=== PATIENT | female | born 1995 | race Caucasian/White ===

== ENCOUNTER 2016-12-11 17:49 | Emergency (ER) | payer BC ==
--- NOTE | 2016-12-11 18:27 | ER Document Report ---
ED Medical Screen (RME) - General Chief Complaint: Vaginal Bleeding Stated Complaint: VAGINAL BLEEDING Time Seen by Provider: 12/11/16 18:24 Mode of Arrival: Ambulatory Information source: Patient Notes: This is a 21-year-old female with no prior medical problems who presents to the emergency room with lower pelvic cramping and some vaginal bleeding earlier in the day. The patient is 8 weeks . She is 0 para 0 and her last normal menstrual period is October 19. The patient was recently seen by her OB doctor and Kushal Arceo and the blood tests confirm the . She does not know what her blood type is. She denies any abdominal pain or abdominal cramping at this time. She describes vaginal bleeding is some dark blood on tissue when she went to the bathroom earlier this morning. She has not had any further bleeding. TRAVEL OUTSIDE OF THE [place] IN LAST 30 DAYS: No - HPI Onset: This morning Onset/Duration: Sudden Quality of pain: Cramping Severity: None Pain Level: Denies Associated Symptoms: None Exacerbated by: Denies Relieved by: Denies Similar symptoms previously: No Recently seen / treated by doctor: Yes - Related Data Smoking: Non-smoker Frequency of alcohol use: None Drug Abuse: None Allergies/Adverse Reactions: No Known Allergies Allergy (Verified 12/11/16 17:52) Past Medical History - General Information source: Patient Last Menstrual Period: 10/13/2016 - Social History Cigarette use (# per day): No Chew tobacco use (# tins/day): No Frequency of alcohol use: None Drug Abuse: None Lives with: Spouse/Significant other Family history: None - Medical History Medical History: Negative Renal/ Medical History: Denies: Hx Peritoneal Dialysis Surgical Hx: Negative Review of Systems - Review of Systems Constitutional: denies: Chills, Fever EENT: No symptoms reported Cardiovascular: No symptoms reported Respiratory: No symptoms reported Gastrointestinal: No symptoms reported Genitourinary: No symptoms reported Female Genitourinary: No symptoms reported Musculoskeletal: No symptoms reported Skin: No symptoms reported Hematologic/Lymphatic: No symptoms reported Neurological/Psychological: No symptoms reported Physical Exam - Vital signs Vitals: Temp Pulse Resp BP Pulse Ox 98.7 F 79 14 132/64 H 100 12/11/16 17:52 12/11/16 17:52 12/11/16 17:52 12/11/16 17:52 12/11/16 17:52 Notes: Physical exam: GENERAL: 21-year-old female, alert and oriented 3, no acute distress. HEAD: Atraumatic, normocephalic. EYES: Pupils equal round and reactive to light, extraocular movements intact, sclera anicteric, conjunctiva are normal. ENT: Moist mucous membranes. NECK: Normal range of motion, supple LUNGS: Breath sounds clear to auscultation bilaterally and equal. No wheezes rales or rhonchi. HEART: Regular rate and rhythm without murmurs, rubs or gallops. ABDOMEN: Soft, normoactive bowel sounds. No tenderness to palpation. No guarding, no rebound. No masses appreciated. Pelvic exam deferred. EXTREMITIES: Normal range of motion, no pitting or edema. No clubbing or cyanosis. NEUROLOGICAL: Cranial nerves II through XII grossly intact. Normal speech, normal gait. PSYCH: Normal mood, normal affect. SKIN: Warm, Dry, normal turgor, no rashes or lesions noted. Course - Re-evaluation Re-evalutation: 12/11/16 20:54 I discussed case with Dr. hernandez who is on-call for OB at [facility] and let him know the results of the ultrasound as well as labs. He will be on-call this weekend and will also get forward to the OB office (Susie Reyes). He is recommended that if the patient has any problems over the weekend, that she should go to [facility] because he is computer operations technician. He is also said that she can call if she has any questions. I have conveyed this to the patient and her . I will give him a copy of the ultrasound as well as the ultrasound report on the labs. Her blood type is O+. Her urine tests look good. Her vital signs are stable and she looks quite good. 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 There is no obvious pole or heartbeat at this time. Doctor's Discharge - Discharge Clinical Impression: Vaginal bleeding in early Condition: Stable Disposition: HOME, SELF-CARE Additional Instructions: As we discussed, the ultrasound does show evidence of an early intrauterine . We are not able to detect the heartbeat with a pole yet. This places the at approximately 5 weeks. The heartbeat is not normally arise until 6 weeks and a few days. At rest, drink plenty of fluids, avoid stress. If you develop any abdominal pain or worsening bleeding return to the ER. Dr. hernandez is at the Ob go to [facility] the [facility] at [facility] and recommended that you so that he can see you if you have any problems over the weekend. He will give forward to Dr. Jones about the lab tests today. Call the office on Tuesday to be seen. Tell them that the ER doctor at spoken to Dr. hernandez is computer operations technician over the weekend. Bring a copy of the ultrasound, ultrasound report and lab reports with you when you go for that appointment.
[2016-12-11 18:57] LABS: APPEARANCE,URINE CLEAR; BILIRUBIN,URINE NEGATIVE (NEGATIVE); GLUCOSE, URINE NEGATIVE (NEGATIVE); KETONES,URINE NEGATIVE (NEGATIVE); LEUKOCYTE ESTERASE,URINE NEGATIVE (NEGATIVE); NITRITE,URINE NEGATIVE (NEGATIVE); PROTEIN,URINE NEGATIVE (NEGATIVE); URINE SPECIFIC GRAVITY 1.025; UROBILINOGEN,URINE NEGATIVE mg/dL (<2.0)
--- NOTE | 2016-12-11 19:39 | RADIOLOGY REPORT (SQ) ---
EXAM DESCRIPTION: U/S OB TRANSVAG W/DOPPLER COMPLETED DATE/TIME: 12/11/2016 7:18 pm REASON FOR STUDY: 8 weeks, with bleeding COMPARISON: None. TECHNIQUE: Transvaginal static and realtime grayscale images acquired of the pelvis. Additional dafne cted spectral and color Doppler images recorded. All images stored on PACs. bHCG: Not available. LIMITATIONS: None. FINDINGS: UTERUS: No masses. Arcuate versus bicornuate morphology. GESTATIONAL SAC: A circumscribed fluid collection is present within the endometrial echo complex, pos sibly on the basis of a small gestational sac. YOLK SAC: A rounded focus within this collection may represent a yolk sac. POLE: No. RIGHT ADNEXA: Normal ovary with normal vascular flow. No adnexal free fluid. No adnexal masses. LEFT ADNEXA: Normal ovary with normal vascular flow. No adnexal free fluid. No adnexal masses. FREE FLUID: None. OTHER: No other significant finding. IMPRESSION: POSSIBLE EARLY INTRAUTERINE . 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 BHCG LEVEL NOT AVAILABLE FOR CORRELATION WITH US FINDINGS. CONSIDER F/U BHCG AND/OR ULTRASOUND FOR VERIFICATION AND TO EXCLUDE ECTOPIC . Trimester of : First - 0 to 13 weeks. TECHNICAL DOCUMENTATION: JOB ID: [id number]- All Rights Reserved
[2016-12-11 20:33] VITALS: BP 111/63
== END 2016-12-11 20:22 | disposition home or self-care (01) ==
LOC: ER 17:49
DX: O20.9 Hemorrhage in early pregnancy, unspecified (principal); O26.891 Other specified pregnancy related conditions, first trimester; R10.2 Pelvic and perineal pain; O34.01 Maternal care for unspecified congenital malformation of uterus, first trimester; Q51.3 Bicornate uterus; Z3A.08 8 weeks gestation of pregnancy
CPT/HCPCS: 36415; 76817; 81001; 84702; 86900; 86901; 93976; 99284

== ENCOUNTER 2017-06-30 20:28 | Emergency (ER) | payer BC, MEDICAID ==
[2017-06-30 22:18] LABS: A TYPE INFLUENZA AG NEGATIVE (NEGATIVE); B INFLUENZA AG NEGATIVE (NEGATIVE)
--- NOTE | 2017-06-30 22:18 | ER Document Report ---
HPI - HPI Patient complains to provider of: flu like symptoms Pain Level: 4 Context: Patient is a 21 year old female, at 33 weeks gestation, that comes to the ED for chief complaint of congestion, ear pain, body aches, and fever over the past 2-3 days. She denies abdominal pain, vomiting, vaginal bleeding, flank pain , shortness or breath, or any significant cough. No daily meds. Had the influenza vaccine, but states she just wants to be tested for the flu. Past Medical History - General Information source: Patient - Social History Smoking Status: Never Smoker Frequency of alcohol use: None Drug Abuse: None Lives with: Family Family History: Reviewed & Not Pertinent - Medical History Medical History: Negative Renal/ Medical History: Denies: Hx Peritoneal Dialysis Surgical Hx: Negative - Immunizations Immunizations up to date: Yes Hx Diphtheria, Pertussis, Tetanus Vaccination: Yes Vertical Provider Document - CONSTITUTIONAL General Appearance: WD/WN, No Apparent Distress - INFECTION CONTROL TRAVEL OUTSIDE OF THE [place] IN LAST 30 DAYS: No - HEENT HEENT: Atraumatic, Normocephalic. negative: Normal ENT Exam - Sinus congestion , swollen turbinates, left otitis media with loss of landmarks and notable erythema, minimal erythema of the posterior pharynx, clear airway, otherwise unremarkable ENT exam - NECK Neck: Normal Inspection - RESPIRATORY Respiratory: Breath Sounds Normal, No Respiratory Distress O2 Sat by Pulse Oximetry: 100 - CARDIOVASCULAR Cardiovascular: Regular Rate, Regular Rhythm - GI/ABDOMEN Gastrointestinal: Abdomen Soft, Abdomen Non-Tender - Nontender gravid abdomen - BACK Back: Normal Inspection - NEURO Level of Consciousness: Awake, Alert, Appropriate Motor/Sensory: No Motor Deficit, No Sensory Deficit - DERM Integumentary: Warm, Dry, No Rash Course - Re-evaluation Re-evalutation: Influenza is negative. Patient is very congested, has examination consistent with developing left-sided otitis media, otherwise she is well-appearing with clear lungs, no hypoxia, she is alert, soft abdomen. Patient will be treated for congestion, otitis media, discussed follow-up, discussed return precautions in detail with patient and including any difficulty breathing or signs of respiratory distress. They state understanding and agreement. - Vital Signs Vital signs: Temp Pulse Resp BP Pulse Ox 98.3 F 96 14 115/68 100 06/30/17 20:58 06/30/17 20:58 06/30/17 20:58 06/30/17 20:58 06/30/17 20:58 Discharge - Discharge Clinical Impression: Sinus pressure, Cough Fever Qualifiers: Fever type: unspecified Qualified Code(s): R50.9 - Fever, unspecified Otitis media Qualifiers: Otitis media type: suppurative Chronicity: acute Laterality: left Recurrence: not specified as recurrent Spontaneous tympanic membrane rupture: without spontaneous rupture Qualified Code(s): H66.002 - Acute suppurative otitis media without spontaneous rupture of ear drum, left ear Condition: Stable Disposition: HOME, SELF-CARE Additional Instructions: Influenza is negative. Exam is consistent with likely viral infection with developing ear infection. Use nasal spray, antibiotic, take Tylenol for fever/pain. Hydrate and rest. Follow up with primary care closely. Return if you worsen including any shortness of breath. Prescriptions: Amoxicillin Trihydrate [Amoxil 500 mg Capsule] 500 mg PO TID #30 cap Fluticasone Propionate [Flonase Nasal [place] 50 Mcg/[place] 16 gm] 1 spray NASL Q12 #1 inhaler
[2017-06-30 23:29] VITALS: BP 117/65
== END 2017-06-30 23:45 | disposition home or self-care (01) ==
LOC: ER 20:28
DX: O26.93 Pregnancy related conditions, unspecified, third trimester (principal); H66.002 Acute suppurative otitis media without spontaneous rupture of ear drum, left ear; R68.89 Other general symptoms and signs; R05 Cough; R50.9 Fever, unspecified; Z3A.33 33 weeks gestation of pregnancy
CPT/HCPCS: 87804; 99283

== ENCOUNTER 2017-08-04 03:52 | Inpatient (IN) | payer MEDICAID ==
[2017-08-04 04:27] LABS: APPEARANCE,URINE TURBID; BILIRUBIN,URINE NEGATIVE (NEGATIVE); COLOR,URINE YELLOW; GLUCOSE, URINE NEGATIVE (NEGATIVE); KETONES,URINE NEGATIVE (NEGATIVE); LEUKOCYTE ESTERASE,URINE TRACE (NEGATIVE); NITRITE,URINE NEGATIVE (NEGATIVE); PROTEIN,URINE 100 mg/dL (NEGATIVE); URINE SPECIFIC GRAVITY 1.004; UROBILINOGEN,URINE NEGATIVE mg/dL (<2.0)
[2017-08-04 04:39] LABS: AMNISURE (ROM) POSITIVE (NEGATIVE)
[2017-08-04] MEDS ORDERED: RINGERS SOLUTION,LACTATED 1,000 ML IV ONE (04:43)
[2017-08-04 04:47] LABS: URINE AMPHETAMINES SCREEN NEGATIVE; URINE BARBITURATES SCREEN NEGATIVE; URINE BENZODIAZEPINES SCREEN NEGATIVE; URINE COCAINE SCREEN NEGATIVE; URINE MARIJUANA (THC) SCREEN NEGATIVE; URINE METHADONE SCREEN NEGATIVE; URINE PHENCYCLIDINE SCREEN NEGATIVE
[2017-08-04 05:23] LABS: ABSOLUTE EOSINOPHILS # (AUTO) 0.1 10^3/uL (0.0-0.6); ABSOLUTE MONOCYTES (AUTO) 0.8 10^3/uL (0.1-1.4); ABSOLUTE NEUT (AUTO) 9.3 10^3/uL (1.7-8.2); BASOPHILS % (AUTO) 0.3 % (0-2); EOSINOPHILS % (AUTO) 1.1 % (0-6); HEMATOCRIT 39.3 % (36.0-47.0); HEMOGLOBIN 13.6 g/dL (12.0-15.5); LYMPHOCYTES % (AUTO) 16.2 % (13-45); MEAN CORPUSCULAR HEMOGLOBIN 30.4 pg (27.0-33.4); MEAN CORPUSCULAR HGB CONC 34.5 g/dL (32.0-36.0); MEAN CORPUSCULAR VOLUME 88 fl (80-97); MONOCYTES % (AUTO) 6.6 % (3-13); PLATELET COUNT 128 10^3/uL (150-450); RED BLOOD COUNT 4.46 10^6/uL (3.72-5.28); RED CELL DISTRIBUTION WIDTH 13.1 % (11.5-14.0); SEGMENTED NEUTROPHILS % (AUTO) 75.8 % (42-78); TOTAL CELLS COUNTED % (AUTO) 100 %; WHITE BLOOD COUNT 12.2 10^3/uL (4.0-10.5)
--- NOTE | 2017-08-04 05:32 | Non Stress Test Report ---
Non Stress Test Datetime Report Generated by CPN: 08/04/2017 05:32 DEMOGRAPHIC EGA NST: 38.4 INDICATION Indication for Study: Ordered by Provider MONITORING Monitor Explained: Monitor Explained; Test Explained; Patient Verbalized Understanding Time on Monitor: 08/04/2017 04:19 Time off Monitor: 08/04/2017 04:48 NST Duration: 29 NST INTERVENTIONS NST Interventions: PO Hydration Physician Notified NST: Dr. Rivas BABY A: [id number] BABY A Movement : Present Contraction Frequency : x1 FHR Baseline : 125 Accelerations : 15X15 Decelerations : None Variability : Moderate 6-25bpm NST Review: Meets Criteria for Reactive NST NST Review and Verified By : GIFTY Harper NSJanell Results: Reactive NST REPORT Report Trigger: Send Report
[2017-08-04] MEDS ORDERED: OXYTOCIN/NORMAL SALINE 20 UNIT/1,000 ML RTUINJ ONE ×2 (07:41→15:58)
[2017-08-04] MEDS ORDERED: LIDOCAINE 1% INJ-PF (10 MG/ML) 30 ML SDV ONE (07:41)
[2017-08-04] MEDS ORDERED: MISOPROSTOL 0.2 MG TABLET ONE (07:41)
--- NOTE | 2017-08-04 09:19 | L&D Progress Notes ---
PROGRESS NOTES Datetime Report Generated by CPN: 08/04/2017 09:19 PROGRESS NOTE Comment: Cat 1 strip, irreg uc's, on Pitocin VAGINAL EXAM Dilatation: 2 MEMBRANES Membranes: Ruptured SIGNATURE SIGNATURE: [id number] Assignment: Eugenio Cha MD Signature: with User ID: Olivia : with User ID: Olivia
[2017-08-04] MEDS ORDERED: OXYTOCIN/NORMAL SALINE 20 UNIT/1,000 ML RTUINJ IV PRN ×2 (09:35→15:46)
--- NOTE | 2017-08-04 12:58 | L&D Progress Notes ---
PROGRESS NOTES Datetime Report Generated by CPN: 08/04/2017 12:58 PROGRESS NOTE Impression: Reassuring Heart Rate Plan: Continue Present Management; Induction Comment: sitting on ball, uc's stronger, requesting epidural, uc's q q 2-3 min, cat 1 strip FETUS C SIGNATURE: [id number];[id number] SIGNATURE: [id number];[id number] Assignment: Eugenio Cha MD Signature: with User ID: [email or web address] : with User ID: [email or web address]
[2017-08-04] MEDS ORDERED: EPHEDRINE SULFATE INJ 50 MG/1 ML AMPULE ONE ×2 (13:04→15:59)
[2017-08-04] MEDS ORDERED: FENTANYL/BUPIVACAINE/NS/PF 200 MCG/100 ML RTUINJ EPI ONE (13:04)
[2017-08-04] MEDS ORDERED: BUPIVACAINE HCL 0.25 % INJ/PF (2.5 MG/1 ML) 30 ML VIAL ONE (13:04)
[2017-08-04] MEDS: RINGERS SOLUTION,LACTATED 1,000 ML IV PRN ×2 (14:30→18:49)
[2017-08-04] MEDS ORDERED: CITRIC ACID/SODIUM CITRATE ORAL SOLN 15 ML UDCUP ONE (15:37)
[2017-08-04] MEDS ORDERED: CEFAZOLIN 1 GM/D5W RTU 1 GM/50 ML RTUPB IV ONE (15:38)
[2017-08-04] MEDS ORDERED: LIDOCAINE 2% INJ-PF (20 MG/ML) 10 ML AMPUL ONE (15:38)
[2017-08-04] MEDS ORDERED: RINGERS SOLUTION,LACTATED 1,000 ML IV PRN (15:46)
[2017-08-04] MEDS ORDERED: HYDROMORPHONE HCL INJ/PF 2 MG/ML AMPULE IV PRN (15:46)
[2017-08-04] MEDS ORDERED: SIMETHICONE 80 MG TAB.CHEW PO PRN (15:46)
[2017-08-04] MEDS ORDERED: ACETAMINOPHEN 100 ML IV PRN (15:46)
[2017-08-04] MEDS ORDERED: PROMETHAZINE HCL INJ 25 MG/1 ML VIAL IV PRN ×3 (15:46→16:20)
[2017-08-04] MEDS ORDERED: DIPH/PERTUSS(ACELL)/TETANUS VAC/PF 0.5 ML SYR (>=10YO) IM PRN (15:46)
[2017-08-04] MEDS ORDERED: ACETAMINOPHEN 325 MG TABLET PO PRN (15:46)
[2017-08-04] MEDS ORDERED: OXYCODONE-ACETAMINOPHEN 5-325 MG TABLET PO PRN (15:46)
[2017-08-04] MEDS ORDERED: MEASLES,MUMPS&RUBELLA VACC/PF 0.5 ML VIAL SUBCUT PRN (15:46)
--- NOTE | 2017-08-04 15:54 | L&D Progress Notes ---
PROGRESS NOTES Datetime Report Generated by CPN: 08/04/2017 15:54 PROGRESS NOTE Impression: Non-reassuring Heart Rate Procedures: Sterile Vag Exam Informed Consent Obtained: Section Delivery Comment: repetitive decelerations with each uc, mod variability, VE /vtx/-2, no descent with UC's, Pitocin off, Dr. Cha notified, POC discussed with pt, hsb and family, it was decided to proceed with C/S, failure to descend and non reasuring strips FETUS C SIGNATURE: [id number];[id number] Assignment: Eugenio Cha MD Signature: with User ID: [email or web address] : with User ID: [email or web address]
[2017-08-04] MEDS ORDERED: KETAMINE HCL INJ 500 MG/10 ML VIAL ONE (15:59)
[2017-08-04] MEDS ORDERED: OXYTOCIN 10 UNIT/ML VIAL ONE (15:59)
[2017-08-04] MEDS ORDERED: FENTANYL CITRATE INJ/PF 100 MCG/2 ML AMPUL ONE (15:59)
[2017-08-04] MEDS ORDERED: MIDAZOLAM 2 MG/2 ML INJ ONE (16:00)
[2017-08-04] MEDS ORDERED: METOCLOPRAMIDE HCL INJ/PF 10 MG/2 ML SDV ONE (16:17)
[2017-08-04] MEDS ORDERED: ONDANSETRON HCL INJ/PF 4 MG/2 ML SDV ONE (16:17)
[2017-08-04] MEDS ORDERED: DEXAMETHASONE SOD PHOSPHATE INJ 4 MG/1 ML VIAL ONE (16:17)
[2017-08-04] MEDS ORDERED: LIDOCAINE 2% INJ-PF (20 MG/ML) 2 ML AMPUL ONE (16:17)
[2017-08-04] MEDS ORDERED: KETOROLAC TROMETHAMINE 60 MG/2 ML SDV ONE (16:17)
[2017-08-04] MEDS ORDERED: FENTANYL CITRATE INJ/PF 100 MCG/2 ML AMPUL IV PRN ×3 (16:20)
[2017-08-04] MEDS ORDERED: ONDANSETRON HCL INJ/PF 4 MG/2 ML SDV IV PRN (16:20)
[2017-08-04] MEDS ORDERED: MORPHINE SULFATE 10 MG/ML INJ IV PRN (16:20)
[2017-08-04] MEDS ORDERED: DIPHENHYDRAMINE HCL 50 MG/ML VIAL IV PRN (16:20)
[2017-08-04] MEDS ORDERED: MEPERIDINE HCL/PF INJ 25 MG/1 ML DISP.SYRIN IV PRN (16:20)
--- NOTE | 2017-08-04 16:58 | Operative Report ---
Operative Report DATE OF SURGERY: 08/04/17 PREOPERATIVE DIAGNOSIS: Repetitive variable decelerations POSTOPERATIVE DIAGNOSIS: Same in addition to umbilical cord presenting in front of the head between the head and the cervix OPERATION: Primary via low transverse uterine incision SURGEON: KADIE CORMIER ANESTHESIA: Epidural TISSUE REMOVED OR ALTERED: Placenta COMPLICATIONS: None ESTIMATED BLOOD LOSS: 250 cc INTRAOPERATIVE FINDINGS: Viable male Apgars 8 and 9 weight 6 lbs. 2 oz. also she has a heart shaped uterus with a septum PROCEDURE: Patient was taken to the OR and placed in supine position after her spinal anesthesia. She is prepared and draped in sterile fashion. Winston was placed for drainage of the bladder. Low transverse incision was made and carried down the level of the fascia. The fascial incision was made with knife and extended bilaterally with curved Redd scissors. The fascia was off the rectus muscles using sharp and blunt dissection. The rectus muscles are in the midline. The peritoneum was entered without incident. Bladder blade was placed and uterine segment was identified. A low transverse incision was made creating a bladder flap. Bladder blade was placed low transverse uterine incision was made with the c safe knife and extended with fingertips. The baby was delivered with some fundal pressure. Mouth and nose were suctioned free. The cord is doubly clamped and cut. Baby is passed off to the art tracer in attendance. The placenta was manually extracted with trailing membranes. The uterus was externalized wrapped in a moist lap sponge. Uterine contents wiped free. Uterus was closed with a running locking layer of 0 chromic suture using the second layer to imbricate the first completing a double layer closure of the uterus. The serosa was closed with a running 2-0 chromic stitch. The pelvis was irrigated and suctioned free of fluid the uterus was replaced in the abdomen. The abdominal wall peritoneum was closed with running 2-0 chromic stitch. Fascia was closed with a running 0 Vicryl in 2 segments. Edy's layer was brought together with 0 plain gut stitch and the skin was closed with running subcuticular 4-0 undyed Vicryl stitch. The wound was dressed mother and baby did well.
[2017-08-04] MEDS ORDERED: ACETAMINOPHEN 100 ML IV ONE (17:04)
--- NOTE | 2017-08-04 19:05 | Admission Physical ---
Datetime Report Generated by CPN: 08/04/2017 19:04 CURRENT ADMISSION Chief Complaint: Suspected Ruptured Membranes Indication for Induction: Not Applicable Admit Plan: Initiate Labor Protocol ALLERGIES Medication Allergies: No Medication Allergies: No Known Allergies (08/04/2017) Medication Allergies: No Known Allergies (06/30/2017) Latex: No Latex Allergies OBSTETRICAL HISTORY EDC: 08/14/2017 00:00 : 1 Para: 0 Term: 0 : 0 SAB: 0 IAB: 0 Ectopic: 0 Livin Cesareans: 0 VBACs: 0 Multiple Births: 0 Gestational Diabetes: No Rh Sensitization: No Incompetent Cervix: No YAMIL: No Infertility: No ART Treatment: No Uterine Anomaly: No IUGR: No Hx Previous C/S: No Macrosomia: No Hx Loss/Stillborn: No PIH: No Hx : No Placenta Previa/Abruption: No Depression/PP Depression: No PTL/PROM: No Post Hemorrhage: No Current Procedures: Ultrasound Obstetrical History Comments: G1 - current SEE RECORDS Alcohol: No Marijuana : No Cocaine: No Other Illicit Drugs: No Cigarettes: Never Smoker. [id number] MEDICAL HISTORY Diabetes: No Blood Transfusion: No Pulmonary Disease (Asthma, TB): No Breast Disease: No Hypertension: No Card Placer Surgery: No Heart Disease: No Hosp/Surgery: No Autoimmune Disorder: No Anesthetic Complications: No Kidney Disease: No Abnormal Pap Smear: No Neuro/Epilepsy: No Psychiatric Disorders: No Other Medical Diseases: No Hepatitis/Liver Disease: No Significant Family History: No Varicosities/Phlebitis: No Trauma/Violence : No Thyroid Dysfunction: No INFECTIOUS HISTORY Gonorrhea: No Genital Herpes: No Chlamydia: No Tuberculosis: No Syphilis: No Hepatitis: No HIV/AIDS Exposure: No Rash or Viral Illness: No HPV: No PHYSICAL EXAM General: Normal HEENT: Normal Neurologic: Normal Thyroid: Normal Heart: Normal Lungs: Normal Breast: Deferred Back: Normal Abdomen: Normal Genitourinary Exam: Normal Extremities: Normal DTRs: Normal Pelvic Type: Adequate VAGINAL EXAM Dilatation: 2 MEMBRANES Membranes: Ruptured FETUS A EGA: 38.4 Monitoring: External US Decelerations: None PLANS FOR LABOR AND DELIVERY Labor and Delivery: None Pain Management: Epidural Feeding Preference: Both Benefit of Breast Feed Discussed: Yes Circumcision: Yes INFORMED CONSENT Informed Consent Obtained: Section Delivery Signature: with User ID: [email or web address]
[2017-08-04] MEDS: KETOROLAC TROMETHAMINE INJ/PF 30 MG/1 ML SDV IV SCH (20:10)
[2017-08-04] MEDS: DOCUSATE SODIUM 100 MG CAPSULE PO SCH (21:43)
[2017-08-05] MEDS: KETOROLAC TROMETHAMINE INJ/PF 30 MG/1 ML SDV IV SCH ×2 (02:54→09:20)
[2017-08-05 07:39] LABS: HEMATOCRIT 33.2 % (36.0-47.0); MEAN CORPUSCULAR HEMOGLOBIN 30.6 pg (27.0-33.4); MEAN CORPUSCULAR HGB CONC 34.3 g/dL (32.0-36.0); MEAN CORPUSCULAR VOLUME 90 fl (80-97); PLATELET COUNT 132 10^3/uL (150-450); RED BLOOD COUNT 3.71 10^6/uL (3.72-5.28); RED CELL DISTRIBUTION WIDTH 13.5 % (11.5-14.0); WHITE BLOOD COUNT 19.1 10^3/uL (4.0-10.5)
[2017-08-05 07:44] LABS: HEMOGLOBIN 11.4 g/dL (12.0-15.5)
--- NOTE | 2017-08-05 08:55 | PDOC PROGRESS REPORT ---
Subjective-OB Progress Note for:: 08/05/17 Physical Exam (OB) Vital Signs: Temp Pulse Resp BP Pulse Ox 98.8 F 76 20 117/68 99 08/05/17 04:06 08/05/17 04:06 08/05/17 04:06 08/05/17 04:06 08/05/17 04:06 Intake & Output 08/04/17 08/05/17 08/06/17 06:59 06:59 06:59 Intake Total 1250 Output Total 1300 Balance -50 Weight 74.797 kg - Dressing Removed: No Incision: Well Approximated Closure Type: opsite - Lochia Lochia Amount: Scant < 10 ml Lochia Color: Rubra/Red - Abdomen Description: Tender, Soft, Round Hernia Present: No Bowel Sounds: Normoactive Flatus Presence: Present Stool: No Fundal Description: Firm, Midline Fundal Height: u/u - u/2 Objective-Diagnostic Laboratory: 08/05/17 06:41 08/05/17 06:41 WBC 19.1 H RBC 3.71 L Hgb 11.4 L D Hct 33.2 L MCV 90 MCH 30.6 MCHC 34.3 RDW 13.5 Plt Count 132 L
[2017-08-05] MEDS: PRENATAL VITAMIN W DHA CAPSULE PO SCH (09:20)
[2017-08-05] MEDS: DOCUSATE SODIUM 100 MG CAPSULE PO SCH ×2 (09:21→18:02)
[2017-08-05] MEDS: OXYCODONE-ACETAMINOPHEN 5-325 MG TABLET PO PRN ×2 (11:15→22:33)
[2017-08-05] MEDS: IBUPROFEN 800 MG TABLET PO SCH ×2 (11:22→18:07)
[2017-08-06 05:26] VITALS: BP 113/58
[2017-08-06] MEDS: IBUPROFEN 800 MG TABLET PO SCH ×3 (05:58→12:18)
[2017-08-06 06:59] LABS: ABSOLUTE BASOPHILS # (AUTO) 0.1 10^3/uL (0.0-0.2); ABSOLUTE EOSINOPHILS # (AUTO) 0.2 10^3/uL (0.0-0.6); ABSOLUTE LYMPHOCYTES (AUTO) 2.3 10^3/uL (0.5-4.7); ABSOLUTE MONOCYTES (AUTO) 0.8 10^3/uL (0.1-1.4); ABSOLUTE NEUT (AUTO) 12.1 10^3/uL (1.7-8.2); BASOPHILS % (AUTO) 0.3 % (0-2); EOSINOPHILS % (AUTO) 1.1 % (0-6); HEMATOCRIT 35.7 % (36.0-47.0); LYMPHOCYTES % (AUTO) 15.1 % (13-45); MEAN CORPUSCULAR HEMOGLOBIN 30.4 pg (27.0-33.4); MEAN CORPUSCULAR HGB CONC 33.6 g/dL (32.0-36.0); MEAN CORPUSCULAR VOLUME 90 fl (80-97); MONOCYTES % (AUTO) 5.4 % (3-13); PLATELET COUNT 142 10^3/uL (150-450); RED BLOOD COUNT 3.95 10^6/uL (3.72-5.28); RED CELL DISTRIBUTION WIDTH 13.8 % (11.5-14.0); SEGMENTED NEUTROPHILS % (AUTO) 78.1 % (42-78); TOTAL CELLS COUNTED % (AUTO) 100 %; WHITE BLOOD COUNT 15.5 10^3/uL (4.0-10.5)
--- NOTE | 2017-08-06 09:23 | PDOC PROGRESS REPORT ---
Subjective-OB Progress Note for:: 08/06/17 Subjective: Ready for discharge. Physical Exam (OB) Vital Signs: Temp Pulse Resp BP Pulse Ox 98.2 F 84 18 113/58 L 99 08/06/17 04:32 08/06/17 04:32 08/06/17 04:32 08/06/17 04:32 08/06/17 04:32 Intake & Output 08/05/17 08/06/17 08/07/17 06:59 06:59 06:59 Intake Total 1250 240 Output Total 1300 600 Balance -50 -360 - PIH/Pre-Eclampsia DTR's: 1 + Clonus: Negative Headache: Absent Epigastric Pain: No Visual Changes: No - Dressing Removed: No Incision: Dressing Closure Type: Op Site - Lochia Lochia Amount: Small 10-25 ml Lochia Color: Rubra/Red - Abdomen Description: Soft, Round Hernia Present: No Bowel Sounds: Normoactive Flatus Presence: Present Stool: No Fundal Description: Firm, Midline Fundal Height: u/u - u/2 Objective-Diagnostic Laboratory: 08/06/17 06:06 08/06/17 06:06 WBC 15.5 H RBC 3.95 Hgb 12.0 Hct 35.7 L MCV 90 MCH 30.4 MCHC 33.6 RDW 13.8 Plt Count 142 L Seg Neutrophils % 78.1 H Lymphocytes % 15.1 Monocytes % 5.4 Eosinophils % 1.1 Basophils % 0.3 Absolute Neutrophils 12.1 H Absolute Lymphocytes 2.3 Absolute Monocytes 0.8 Absolute Eosinophils 0.2 Absolute Basophils 0.1
--- NOTE | 2017-08-06 09:30 | PDOC DISCHARGE SUMMARY ---
Final Diagnosis Discharge Date: 08/06/17 - Final Diagnosis (1) Bicornuate uterus in , delivered, current hospitalization Is this a current diagnosis for this admission?: Yes (2) Delivery by emergency caesarean section Is this a current diagnosis for this admission?: Yes (3) Is this a current diagnosis for this admission?: Yes (4) Variable heart rate decelerations, delivered Is this a current diagnosis for this admission?: Yes Discharge Data - Discharge Medication Prescriptions: Oxycodone HCl/Acetaminophen [Percocet 5-325 mg Tablet] 1 tab PO Q4HP PRN #20 tablet PRN Reason: Docusate Sodium [Colace 100 mg Capsule] 100 mg PO BID #30 capsule Ibuprofen [Motrin 800 mg Tablet] 800 mg PO Q6 #30 tablet Home Medications: Vit/Iron Fum/Folic AC [ Tablet] 1 each PO DAILY 08/04/17 Docusate Sodium [Colace 100 mg Capsule] 100 mg PO BID #30 capsule 08/06/17 Ibuprofen [Motrin 800 mg Tablet] 800 mg PO Q6 #30 tablet 08/06/17 Oxycodone HCl/Acetaminophen [Percocet 5-325 mg Tablet] 1 tab PO Q4HP PRN #20 tablet 08/06/17 Gestational Age: 38+ wks Reason(s) for Admission: Onset of Labor, PROM Procedures: Ultrasound Intrapartum Procedure(s): : Low Cervical, Transverse - [place] Data Baby 1 Male at 1 minute: 8 at 5 minutes: 9 Weight: 2.778 kg Home with Mother: Yes Complications: No - Diagnosis Test Laboratory: Temp Pulse Resp BP Pulse Ox 98.2 F 84 18 113/58 L 99 08/06/17 04:32 08/06/17 04:32 08/06/17 04:32 08/06/17 04:32 08/06/17 04:32 08/04/17 08/04/17 08/05/17 04:06 05:05 06:41 RBC 4.46 3.71 L Hgb 13.6 11.4 L D Hct 39.3 33.2 L Urine Opiates Screen NEGATIVE 08/06/17 06:06 RBC 3.95 Hgb 12.0 Hct 35.7 L Urine Opiates Screen - Discharge information/Instructions Discharge Activity: Activity As Tolerated, Balance Activity w/Rest, No Lifting Over 10 Pounds, No Lifting/Push/Pulling, Pelvic Rest, Slowly Increase Activity, No tub bath Discharge Diet: Regular Disposition: HOME, SELF-CARE Follow up with: [facility] in: 1, Weeks
[2017-08-06] MEDS: DOCUSATE SODIUM 100 MG CAPSULE PO SCH (09:51)
[2017-08-06] MEDS: PRENATAL VITAMIN W DHA CAPSULE PO SCH (09:54)
== END 2017-08-06 17:56 | disposition home or self-care (01) | DRG 766 ==
LOC: LC 03:52 → LR 04:43 → 2N 19:03
PROVIDERS: ADMIT Obstetrics & Gynecology Gynecology; ATTEND Obstetrics & Gynecology Gynecology
PROC: 10D00Z1 Extraction of Products of Conception, Low, Open Approach (ICD-10-PCS; principal; 2017-08-04)
PROC: 4A1HXCZ Monitoring of Products of Conception, Cardiac Rate, External Approach (ICD-10-PCS; 2017-08-04)
DX: O76 Abnormality in fetal heart rate and rhythm complicating labor and delivery (principal); O65.5 Obstructed labor due to abnormality of maternal pelvic organs; O34.03 Maternal care for unspecified congenital malformation of uterus, third trimester; Q51.3 Bicornate uterus; Z3A.38 38 weeks gestation of pregnancy; Z37.0 Single live birth
CPT/HCPCS: 1961; 36415; 59025; 80307; 81005; 84112; 85025; 85027; 86592; 86850; 86900; 86901; 94799; J0131; J0690; J1100; J1885; J2250; J2405; J2590; J2765; J3010; J3490

== ENCOUNTER 2019-02-08 13:14 | Emergency (ER) | payer MEDICAID ==
--- NOTE | 2019-02-08 13:50 | ER Document Report ---
ED Medical Screen (RME) - General Chief Complaint: Vaginal Bleeding Stated Complaint: POSSIBLE MISCARRIAGE Time Seen by Provider: 02/08/19 13:45 Primary Care Provider: ADARSH MAURICE MD [Primary Care Provider] - Follow up as needed Mode of Arrival: Ambulatory Information source: Patient Notes: 23-year-old female presented to ED for complaint of vaginal bleeding and pelvic pain. She states she has also nausea but no vomiting. She states she is 9 weeks 6 days and had a ultrasound last Tuesday. Patient states the bleeding just started about an hour or so ago. Patient is alert oriented respirations regular and unlabored speaking in full sentences she is walking with a steady gait. She states she just started about an hour ago and is been using a wash rag because she did not have any pads. I have greeted and performed a rapid initial assessment of this patient. A comprehensive ED assessment and evaluation of the patient, analysis of test results and completion of medical decision making process will be conducted by an additional ED providers. TRAVEL OUTSIDE OF THE [place] IN LAST 30 DAYS: No - Related Data Allergies/Adverse Reactions: No Known Allergies Allergy (Verified 02/08/19 13:16) Past Medical History - Social History Family history: None Renal/ Medical History: Denies: Hx Peritoneal Dialysis - Immunizations Immunizations up to date: Yes Hx Diphtheria, Pertussis, Tetanus Vaccination: Yes History of Influenza Vaccine for 03/2017 - 08/2017 Season: Yes Influenza Administration Date for 03/2017 - 08/2017 Season: 04/04/17 Physical Exam - Vital signs Vitals: Temp Pulse Resp BP Pulse Ox 98.4 F 109 H 16 121/71 98 02/08/19 13:18 02/08/19 13:18 02/08/19 13:18 02/08/19 13:18 02/08/19 13:18 Course - Vital Signs Vital signs: Temp Pulse Resp BP Pulse Ox 98.4 F 109 H 16 121/71 98 02/08/19 13:18 02/08/19 13:18 02/08/19 13:18 02/08/19 13:18 02/08/19 13:18 Doctor's Discharge - Discharge Referrals: ADARSH MAURICE MD [Primary Care Provider] - Follow up as needed
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
--- NOTE | 2019-02-08 14:43 | RADIOLOGY REPORT (SQ) ---
EXAM DESCRIPTION: U/S [id number] TRNABD 1GES W/ODOP COMPLETED DATE/TIME: 02/08/2019 2:26 pm REASON FOR STUDY: pelvic pain and bleeding COMPARISON: None. TECHNIQUE: Transabdominal static and realtime grayscale images acquired of the pelvis. Additional se lected spectral and color Doppler images recorded. All images stored on PACs. bHCG: Not drawn. CLINICAL DATES: LMP 12/01/2018. 9 weeks 6 days. LIMITATIONS: None. FINDINGS: FETUS: Single Living intrauterine . ULTRASOUND EGA: 9 weeks 2 days. ULTRASOUND VINNY: 09/11/2019 EFW: Not applicable less than 20 weeks. CRL: 2.5 cm. FHR: 168 beats per minute. SURVEY: Too early to assess. AMNIOTIC FLUID: Adequate amount. PLACENTA: Not yet developed due to early gestation. SUBCHORIONIC BLEED: Yes SIZE OF BLEED: 1.4 x 1.7 x 1.8 cm. UTERUS: Bicornuate uterus versus arcuate uterus. CERVICAL LENGTH: 1.9 cm. Closed. RIGHT ADNEXA: Normal ovary with normal vascular flow. 4.5 x 1.7 x 1.9 cm. No adnexal free fluid. No adnexal masses. LEFT ADNEXA: Normal ovary with normal vascular flow. 2.1 x 2.7 x 4 cm. 2 cm corpus luteum. No adnexal free fluid. No adnexal masses. FREE FLUID: None. OTHER: No other significant finding. IMPRESSION: Live intrauterine of 9 weeks 2 days. 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 Pre gnancy is in the right horn. Trimester of : First trimester - 0 to 13 weeks. TECHNICAL DOCUMENTATION: JOB ID: [id number]- All Rights Reserved rev Reading location - IP/workstation name: [email or web address]
[2019-02-08 14:59] LABS: ABSOLUTE LYMPHOCYTES (AUTO) 1.1 10^3/uL (0.5-4.7); ABSOLUTE MONOCYTES (AUTO) 0.4 10^3/uL (0.1-1.4); ABSOLUTE NEUT (AUTO) 10.3 10^3/uL (1.7-8.2); BASOPHILS % (AUTO) 0.2 % (0-2); EOSINOPHILS % (AUTO) 0.2 % (0-6); HEMATOCRIT 40.8 % (36.0-47.0); HEMOGLOBIN 13.6 g/dL (12.0-15.5); LYMPHOCYTES % (AUTO) 9.2 % (13-45); MEAN CORPUSCULAR HEMOGLOBIN 28.8 pg (27.0-33.4); MEAN CORPUSCULAR HGB CONC 33.4 g/dL (32.0-36.0); MEAN CORPUSCULAR VOLUME 86 fl (80-97); MONOCYTES % (AUTO) 3.3 % (3-13); PLATELET COUNT 227 10^3/uL (150-450); RED BLOOD COUNT 4.73 10^6/uL (3.72-5.28); RED CELL DISTRIBUTION WIDTH 13.4 % (11.5-14.0); SEGMENTED NEUTROPHILS % (AUTO) 87.1 % (42-78); TOTAL CELLS COUNTED % (AUTO) 100 %; WHITE BLOOD COUNT 11.9 10^3/uL (4.0-10.5)
[2019-02-08 15:08] LABS: APPEARANCE,URINE SLIGHTLY-CLOUDY; BILIRUBIN,URINE NEGATIVE (NEGATIVE); COLOR,URINE YELLOW; GLUCOSE, URINE NEGATIVE (NEGATIVE); KETONES,URINE TRACE mg/dL (NEGATIVE); LEUKOCYTE ESTERASE,URINE NEGATIVE (NEGATIVE); NITRITE,URINE NEGATIVE (NEGATIVE); PROTEIN,URINE NEGATIVE (NEGATIVE); URINE SPECIFIC GRAVITY 1.023; UROBILINOGEN,URINE NEGATIVE mg/dL (<2.0)
[2019-02-08 15:16] LABS: ALBUMIN 4.2 g/dL (3.5-5.0); ALKALINE PHOSPHATASE 45 U/L (38-126); ANION GAP 9 (5-19); ASPARTATE AMINO TRANSFERASE 15 U/L (14-36); BILIRUBIN,DIRECT 0.2 mg/dL (0.0-0.4); BILIRUBIN,TOTAL 0.3 mg/dL (0.2-1.3); BLOOD UREA NITROGEN 10 mg/dL (7-20); CALCIUM 9.9 mg/dL (8.4-10.2); CARBON DIOXIDE 25 mmol/L (22-30); CHLORIDE 103 mmol/L (98-107); GLUCOSE 106 mg/dL (75-110); POTASSIUM 3.7 mmol/L (3.6-5.0); TOTAL PROTEIN 7.3 g/dL (6.3-8.2)
[2019-02-08 17:17] VITALS: BP 103/62
== END 2019-02-08 17:12 | disposition home or self-care (01) ==
LOC: ER 13:14
DX: O46.91 Antepartum hemorrhage, unspecified, first trimester (principal); O23.41 Unspecified infection of urinary tract in pregnancy, first trimester; O26.891 Other specified pregnancy related conditions, first trimester; R10.9 Unspecified abdominal pain; Z3A.09 9 weeks gestation of pregnancy
CPT/HCPCS: 36415; 76801; 80053; 81001; 84702; 85025; 86900; 86901; 87086; 99284